=== PATIENT | male | born 1975 | race Caucasian/White ===

== ENCOUNTER 2019-12-08 06:39 | Emergency (ER) | payer MEDICAID ==
[~2019-12-08] VITALS: Ht 170.2 cm; Wt 82.0 kg
[2019-12-08] MEDS ORDERED: IBUPROFEN 800MG TABLET PO ONE (07:00)
[2019-12-08] MEDS ORDERED: ENALAPRIL 5MG TABLET PO SCH (07:00)
[2019-12-08 09:15] VITALS: BP 168/109
== END 2019-12-08 09:28 | disposition home or self-care (01) ==
LOC: ER 07:11
DX: M25.562 Pain in left knee (principal); M25.571 Pain in right ankle and joints of right foot; I10 Essential (primary) hypertension
CPT/HCPCS: 73562; 73610; 99284

== ENCOUNTER 2024-07-13 10:08 | Emergency (ER) | payer SELFPAY ==
[~2024-07-13] VITALS: Ht 170.2 cm; Wt 86.0 kg
[2024-07-13 10:12] VITALS: BP 128/70; PULSE 93; RESP 14; TEMP 36.9; O2SAT 99
[2024-07-13] MEDS: ONDANSETRON 4MG ODT PO ONE (11:23)
[2024-07-13] MEDS: KETOROLAC 30MG/ML VIAL IM ONE (11:23)
[2024-07-13] MEDS ORDERED: IBUP-2028 MT (11:45)
[2024-07-13] MEDS ORDERED: LIDO700A15 TP (11:45)
== END 2024-07-13 12:04 | disposition home or self-care (01) ==
LOC: ER 10:08
DX: M54.2 Cervicalgia (principal); I10 Essential (primary) hypertension
CPT/HCPCS: 99283; 71045; 96372; J1885; Q0162